=== PATIENT | female | born 1985 | race Caucasian/White ===

== ENCOUNTER → 2020-02-24 13:49 | Outpatient (CLI) | payer OTHER, SELFPAY ==
[2020-02-24 14:44] LABS: Add Manual Diff / Slide Review NO; Basophils Absolute Auto 0 /uL (0-100); Basophils Percent Auto 0.7 % (0-2); Eosinophils Absolute Auto 100 /uL (0-450); Eosinophils Percent Auto 1.2 % (2-4); Hematocrit 43.2 % (36-46); Hemoglobin 14.3 g/dL (12.0-16.0); Lymphocytes Absolute Auto 1700 /uL (1100-4500); Lymphocytes Percent Auto 27.9 % (25-40); Mean Corpuscular HGB Conc 33.1 % (30-36); Mean Corpuscular Hemoglobin 28.2 PG (26-34); Mean Corpuscular Volume 85.4 fL (80-100); Monocytes Absolute Auto 500 /uL (0-900); Monocytes Percent Auto 7.5 % (3-14); Neutrophils Absolute Auto 3800 /uL (1500-7000); Neutrophils Percent Auto 62.7 % (50-75); Platelet Count 251 X10^3/uL (150-400); Red Blood Cell Count 5.06 X10^6/uL (4.0-5.2); Red Cell Distribution Width 13.2 % (11.6-14.8); White Blood Cell Count 6.1 X10^3/uL (4.5-11.0)
[2020-02-24 15:19] LABS: Alanine Aminotransferase 11 IU/L (<35); Albumin Globulin Ratio 1.4 (1.0-2.8); Alkaline Phosphatase 39 U/L (38-126); Aspartate Aminotransferase 22 IU/L (14-36); Bilirubin Total 1.1 mg/dL (0.2-1.3); Blood Urea Nitrogen 7 mg/dL (7-17); Calcium 10.2 mg/dL (8.4-10.2); Carbon Dioxide 28 mmol/L (22-32); Chloride 103 mmol/L (98-107); Estimated Glomerular Filt Rate > 60.0 mL/min (>60); Globulin 3.6 g/dL (1.7-4.1); Glucose 97 mg/dL (70-100); HEMOLYSIS < 15 (0-50); Potassium 4.3 mmol/L (3.4-5.1); Sodium 141 mmol/L (137-145); Total Protein 8.6 g/dL (6.3-8.2)
[2020-02-24 15:49] LABS: Thyroid Stimulating Hormone 1.16 uIU/mL (0.47-4.68)
== END ==
PROVIDERS: PCP Family Medicine; Referring Provider Family Medicine; Visit Provider Family Medicine
DX: R00.2 Palpitations (principal)
CPT/HCPCS: 36415; 80053; 84443; 85025

== ENCOUNTER → 2020-02-28 11:17 | Outpatient (CLI) | payer OTHER, SELFPAY ==
--- NOTE | 2020-02-28 11:21 | DI.RAD.S_ITS ---
PROCEDURE: XR CHEST 2V INDICATIONS: rapid heart rate TECHNIQUE: 2 views of the chest were acquired. COMPARISON: None. FINDINGS: Surgical changes and devices: None. Lungs and pleura: Lungs are clear. No pleural effusions or pneumothorax. Mediastinum: Mediastinal contours are normal. Heart size is normal. Bones and chest wall: No suspicious bony abnormalities. Soft tissues appear unremarkable. IMPRESSION: Normal for age, source of current tachycardia symptoms is not seen. Dictated by: Porfirio Valerio M.D. on 02/28/2020 at 11:57 Approved by: Porfirio Valerio M.D. on 02/28/2020 at 11:57
== END ==
PROVIDERS: PCP Family Medicine; Referring Provider Family Medicine; Visit Provider Family Medicine
DX: R00.2 Palpitations (principal)
CPT/HCPCS: 71046

== ENCOUNTER → 2020-03-14 12:29 | Outpatient (CLI) | payer OTHER, SELFPAY ==
[2020-03-14 13:38] LABS: Erythrocyte Sedimentation Rate 1 MM/HR (0-20)
[2020-03-14 13:52] LABS: C-Reactive Protein Quant < 0.5 mg/dL (<1.0)
[2020-03-15 19:10] LABS: ANA Screen, IFA Negative (.)
== END ==
PROVIDERS: Referring Provider Family Medicine; Visit Provider Family Medicine
DX: R06.02 Shortness of breath (principal); J45.909 Unspecified asthma, uncomplicated; R00.2 Palpitations
CPT/HCPCS: 36415; 85651; 86038; 86140

== ENCOUNTER → 2020-03-27 09:01 | Outpatient (CLI) | payer OTHER, SELFPAY | PROVIDERS: PCP Family Medicine; Visit Provider Family Medicine | DX: R06.02 Shortness of breath (principal) | CPT/HCPCS: 87635 ==

== ENCOUNTER → 2020-04-02 15:38 | Outpatient (CLI) | payer OTHER, SELFPAY ==
[2020-04-03 01:01] LABS: COVID19 Sendout Not Detected (Not Detect)
== END ==
PROVIDERS: PCP Family Medicine; Visit Provider Registered Nurse
DX: Z11.59 Encounter for screening for other viral diseases (principal)
CPT/HCPCS: 87635

== ENCOUNTER → 2020-04-05 14:49 | Outpatient (CLI) | payer OTHER, SELFPAY ==
--- NOTE | 2020-04-05 | DI.ECHO.S_ITS ---
[facility]---------+ [facility] +---------+ : : [address] : : : : [place], [place] : : : : [id number] : : : : Phone: [phone]+ Echocardiogram Report + + :Name: GEETHA ARAIZA Study Date: 04/05/2020 Height: 63 in : :[facility] Weight: 115 lb : : Gender: Female BSA: 1.5 m2 : :: 1985 Age: 34 yrs BP: 108/62 mmHg: :Reason For Study: DYSPNEA : : Performed By: Ludy Yung : :Referring: UNSPECIFIED : + + Interpretation Summary Normal sinus rhythm. Normal LV size, wall thickness, wall motion and LV systolic function. EF is 65-70%. Normal chamber sizes. No valvular abnormalities. This is a normal echocardiogram. No prior study available for comparison. Ordering Doctor: Miroslava Rucker Fax/ Procedure: A two-dimensional transthoracic echocardiogram with color flow and Doppler was performed. The study quality was technically adequate. There is no prior echocardiogram noted for this patient. The patient was in normal sinus rhythm during the exam. Left Ventricle: The left ventricle is normal in size and wall thickness. The ejection fraction is estimated to be 65-70%. Left ventricular wall motion is normal. Right Ventricle: The right ventricle is normal in size and function. Atria: Both atria are normal in size. There is no Doppler evidence for an interatrial shunt. Mitral Valve: The mitral valve is normal in structure and function. There is trace mitral regurgitation. Aortic Valve: The aortic valve is trileaflet. The aortic valve opens well. There is no aortic valve stenosis. No aortic regurgitation is present. Tricuspid Valve: The tricuspid valve is normal in structure and function. There is mild tricuspid regurgitation. The right ventricular systolic pressure is estimated to be at least 20 mmHg based on an estimated right atrial pressure of 3 mm Hg. Pulmonic Valve: The pulmonic valve is normal in structure and function. There is no pulmonic valvular regurgitation. Great Vessels: The aortic root is normal size. The ascending aorta could not be visualized. The inferior vena cava appeared normal. Pericardium/ Pleura There is no pericardial effusion. There is no pleural effusion. MMode/2D Measurements & Calculations LVIDd: 4.2 cm LVOT diam: 1.9 cm LVIDs: 2.6 cm Ao root diam: 2.1 cm FS: 37.2 % Ao Arch Diam (Prox Trans): 2.1 cm EPSS: 0.33 cm IVSd: 0.58 cm LVPWd: 0.84 cm LV mccurdy. diameter/BSA (cm/m^2): 2.8 LV sys. diameter/BSA (cm/m^2): 1.7 LA A2 area: 12.1 cm2 RA long axis: 3.8 cm LA A4 area: 11.3 cm2 RA area: 10.6 cm2 LA length (vol): 3.6 cm RA vol: 25.4 ml LA vol: 32.3 ml RA : 16.6 ml/m2 LA vol index: 21.1 ml/m2 IVC diam: 1.6 cm RVD1 (basal): 3.1 cm TAPSE: 2.8 cm Doppler Measurements & Calculations Ao V2 max: 134.6 cm/sec LVOT Max Fredi: 112.3 cm/sec Ao V2 mean: 80.0 cm/sec LV V1 max P.0 mmHg Ao max P.2 mmHg LV V1 VTI: 21.8 cm Ao mean P.1 mmHg KATIE(I,D): 2.6 cm2 Ao V2 VTI: 24.1 cm KATIE(V,D): 2.4 cm2 sev ratio: 0.90 KATIE indexed to BSA (cm^2/m^2): 1.7 MV E max fredi: 115.3 cm/sec TR max fredi: 207.4 cm/sec MV A max fredi: 76.0 cm/sec TR max P.2 mmHg MV E/A: 1.5 PA V2 max: 108.5 cm/sec Med Peak E' Fredi: 14.9 cm/sec PA V2 mean: 73.9 cm/sec E/E' med: 7.7 PA mean P.5 mmHg Lat Peak E' Fredi: 20.1 cm/sec E/E' lat: 5.7 E/e' average: 6.7 MV dec time: 0.12 sec SV(LVOT): 62.3 ml Electronically signed by: Giselle Peña M.D. on Reading Physician:04/06/2020 12:01 AM
== END ==
PROVIDERS: PCP Family Medicine; Referring Provider Specialist; Visit Provider Specialist
DX: R06.09 Other forms of dyspnea (principal); I07.1 Rheumatic tricuspid insufficiency
CPT/HCPCS: 93306

== ENCOUNTER → 2020-04-23 10:08 | Outpatient (CLI) | payer OTHER, SELFPAY ==
[2020-04-26 16:14] LABS: COVID19 Sendout Not Detected (Not Detected)
== END ==
PROVIDERS: PCP Family Medicine; Visit Provider Registered Nurse
DX: Z01.812 Encounter for preprocedural laboratory examination (principal)
CPT/HCPCS: 87635

== ENCOUNTER → 2020-04-26 16:47 | Outpatient (CLI) | payer OTHER, SELFPAY ==
--- NOTE | 2020-05-04 16:08 | PM.PFT.1 ---
Pulmonary Function Test Referral & Results Date Patient Seen: 04/26/20 Requesting provider: Miroslava Rucker Results: The spirometry demonstrates an FVC of 3.87 L which is 106% of predicted. The FEV1 was measured at 3.0 L which is 97% of predicted. The FEV1/FVC ratio was 77 which is 92% of predicted. Following the administration of bronchodilator there was an 18% improvement in FEV1, even though FEV1 was technically normal . Lung volumes show an SVC of 4.01 L which is 113% of predicted. The diffusing capacity was measured at 30.21 which is 131% of predicted. The maximum voluntary ventilation was normal Interpretation: This test could be considered entirely normal however the combination of an 18% improvement in FEV1 following bronchodilator and the more than 100% expected diffusing capacity suggested diagnosis of asthma. Clinical correlation suggested
== END ==
PROVIDERS: PCP Family Medicine; Referring Provider Specialist; Visit Provider Specialist
DX: J44.9 Chronic obstructive pulmonary disease, unspecified (principal); R06.09 Other forms of dyspnea
CPT/HCPCS: 94060; 94664; 94726; 94729

== ENCOUNTER → 2020-06-04 10:36 | Outpatient (CLI) | payer OTHER, SELFPAY ==
--- NOTE | 2020-06-21 08:40 | P.HOLT.S_ITS ---
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 Teacher Report Referral & Results Date Patient Seen: 06/04/20 Requesting provider: Gita Matamoros Indication: Palpitations Duration of monitoring (days): 7 Diary information: There were 11 patient triggered events and 10 patient diary entries All of these marked events were associated with sinus rhythm alone Data: Minimum heart rate was 40 beats per minute at 04:01 on 06/06/2020 Maximum heart rate was 183 beats per minute at 18:45 on 06/04/2020 Less than 1% of identified beats or either ventricular supraventricular ectopic in origin No other dysrhythmias were identified Impression: No etiology for patient's reported sense of palpitations identified on this st udy. 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
== END ==
PROVIDERS: Family Provider Family Medicine; PCP Family Medicine; Referring Provider Family Medicine; Visit Provider Family Medicine
DX: R00.2 Palpitations (principal)
CPT/HCPCS: 0296T; 0298T